=== PATIENT | female | born 1955 | race Caucasian/White ===

== ENCOUNTER 2017-09-10 20:51 | Emergency (ER) | payer OTHER ==
[~2017-09-10] VITALS: Ht 170.2 cm; Wt 90.7 kg
[~2017-09-10 20:51] MED LIST: VICODIN 5-3001 EACH PO; XANAX 0.25 MG0.25 MG PO
[2017-09-10 21:52] LABS: ABSOLUTE BASOPHILS 0.1 thou/uL (0.0-0.2); ABSOLUTE EOSINOPHILS 0.1 thou/uL (0.0-0.7); ABSOLUTE LYMPHOCYTES 2.4 thou/uL (0.8-5.3); ABSOLUTE MONOCYTES 0.4 thou/uL (0.0-1.2); ABSOLUTE NEUTROPHILS 3.3 thou/uL (1.6-8.1); BASOPHILS 1.2 %; EOSINOPHILS 1.7 %; HEMATOCRIT 37.3 % (37.0-47.0); HEMOGLOBIN 12.5 gm/dL (12.0-15.0); LYMPHOCYTES 38.8 %; MCH 30.3 pg (26.0-34.0); MCHC 33.5 g/dL (28.0-37.0); MCV 90.3 fL (80.0-100.0); MONOCYTES 6.2 %; MPV 7.2 fl. (7.2-11.1); NUCLEATED RBCS 0 /100WBC; PLATELET COUNT* 296 thou/uL (150-400); POLYS 52.1 %; RBC 4.13 mil/uL (4.20-5.00); RDW-CV 14.4 % (10.5-14.5); WBC 6.3 thou/uL (4.0-11.0)
[2017-09-10 22:00] LABS: CALCIUM 9.1 mg/dL (8.5-10.1); CREATININE 0.8 mg/dL (0.6-1.3); POTASSIUM 3.6 mmol/L (3.5-5.1)
[2017-09-10 22:05] LABS: ALBUMIN 3.2 g/dL (3.4-5.0); TOTAL BILIRUBIN 0.4 mg/dL (<0.1-1.0); TOTAL PROTEIN 7.6 g/dL (6.4-8.2)
[2017-09-10] MEDS ORDERED: KEFLEX500 M1 PO (22:57)
[2017-09-10] MEDS ORDERED: BACTRIM DS TAB1 EACH PO (22:57)
[2017-09-11 00:02] VITALS: BP 128/70
== END 2017-09-11 00:03 | disposition home or self-care (01) ==
LOC: M.ERS 20:51
PROVIDERS: Physician Assistant
DX: M79.601 Pain in right arm (principal); F32.9 Major depressive disorder, single episode, unspecified; F17.210 Nicotine dependence, cigarettes, uncomplicated; Z88.8 Allergy status to other drugs, medicaments and biological substances; Z90.710 Acquired absence of both cervix and uterus

== ENCOUNTER 2018-05-24 19:11 | Emergency (ER) | payer OTHER ==
[~2018-05-24] VITALS: Ht 170.2 cm; Wt 90.7 kg
[~2018-05-24 19:11] MED LIST changes: +BACTRIM DS TAB1 EACH PO; +KEFLEX500 M1 PO
[2018-05-24] MEDS ORDERED: PROZAC20 MG PO (20:53)
[2018-05-24 20:56] VITALS: BP 134/57
[2018-05-24] MEDS ORDERED: KEFLEX500 M1 PO (20:56)
== END 2018-05-24 20:56 | disposition home or self-care (01) ==
LOC: M.ERS 19:11
DX: M67.432 Ganglion, left wrist (principal); F17.210 Nicotine dependence, cigarettes, uncomplicated; F32.9 Major depressive disorder, single episode, unspecified; Z88.4 Allergy status to anesthetic agent; Z90.710 Acquired absence of both cervix and uterus

== ENCOUNTER 2018-06-01 16:49 | Emergency (ER) | payer OTHER ==
[~2018-06-01] VITALS: Ht 170.2 cm; Wt 90.7 kg
[~2018-06-01 16:49] MED LIST changes: +PROZAC20 MG PO
[2018-06-01] MEDS ORDERED: ROSUVASTATIN CA10 MG PO (16:55)
[2018-06-01 17:40] VITALS: BP 169/72
[2018-06-01] MEDS ORDERED: MAGIC MOUTHWASH SWISH&SPIT (17:42)
[2018-06-01] MEDS ORDERED: PENICILLIN V P500 MG PO (17:42)
== END 2018-06-01 17:52 | disposition home or self-care (01) ==
LOC: M.ERS 16:49
DX: K12.1 Other forms of stomatitis (principal); K12.30 Oral mucositis (ulcerative), unspecified; K04.7 Periapical abscess without sinus; F32.9 Major depressive disorder, single episode, unspecified; Z90.710 Acquired absence of both cervix and uterus; F17.210 Nicotine dependence, cigarettes, uncomplicated; Z88.8 Allergy status to other drugs, medicaments and biological substances